=== PATIENT | male | born 2005 | race Caucasian/White ===

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

== ENCOUNTER 2025-08-30 17:02 | Emergency (ER) | payer OTHER, BC, SELFPAY ==
[2025-08-30 17:12] VITALS: BP 111/62; PULSE 59; RESP 16; TEMP 36.8; O2SAT 98; BMI 20.2
--- NOTE | 2025-08-30 17:31 | ED.HEATRA ---
HPI - Head Injury General Chief complaint: Head Injury/Pain Stated complaint: Hit head at work Time Seen by Provider: 08/30/25 17:16 History of Present Illness HPI Narrative: This patient is a 20-year-old male who comes in for evaluation of a head injury that occurred at work today. He stood up and hit his head on and implement and felt dazed but did not have loss of consciousness. Since then he is reporting some feelings of lightheadedness and off balance at times. He also reports some nausea a but has not had any vomiting. There is no altered level of consciousness or neurologic deficit since this injury. Related Data Home Medications ?Medication ?Instructions ?Recorded ?Confirmed No Known Home Medications 08/30/25 08/30/25 Allergies Allergy/AdvReac Type Severity Reaction Status Date / Time No Known Drug Allergies Allergy Verified 07/21/25 11:14 Review of Systems Status of ROS: Reports: 10 or more systems reviewed and unremarkable except as noted in History and below Narrative: Constitutional: No fevers, no weight gain or loss. Eyes: No discharge. No vision changes. HENT: No congestion, no sore throat, no ear pain. Cardiovascular: No chest pain, no palpitations. Respiratory: No shortness of breath, no wheezes, no cough. Gastrointestinal: No abdominal pain, no vomiting, no diarrhea. Genitourinary: No dysuria, no hematuria. Musculoskeletal: Normal range of motion. Skin: No rashes, no pruritis. Neurological: No dizziness, weakness, sensory change, speech change. Endo/Heme/Allergies: No bruising or bleeding. No polydipsia. Pysch: no suicidality, no anxiety, no insomnia. All other systems reviewed and are negative. PFSH [facility] Social History Smoking Status: Never smoker How often do you have a drink containing alcohol: never AUDIT-C Alcohol total score: 0 Non-prescribed substance use: denies use Exam Narrative: Exam Narrative: Constitutional: Well-developed, well-nourished, no acute distress. HEENT: Small area of erythema on the top of his head without any underlying swelling or hematoma. No abrasion or laceration. Neck: Normal range of motion. Nontender. Supple. Heart: Regular. No murmurs. Normal rate. Intact distal pulses. Lungs: Clear to auscultation. No chest discomfort. No wheezes, rhonchi, or rales. Abdomen: Normal bowel sounds. Nontender. No rebound tenderness. Genitalia: Deferred. Back: No midline tenderness. Normal range of motion. Extremities: Normal range of motion. No injury. Skin: Intact. No rash. Warm. No erythema or pallor. Neurologic: No altered sensation. No weakness. Alert and oriented. Psychiatric: No suicidality. No anxiety or depression. No insomnia. Nursing notes and vitals signs are reviewed. Const: Vital Signs, click to edit/add: Vital Signs - 24 hr 08/30/25 17:12 Temperature 98.3 F Pulse Rate [Pulse Oximeter] 59 L Respiratory Rate 16 Blood Pressure [Ri ght Upper Arm] 111/62 Pulse Oximetry 98 Oxygen Delivery Me thod Room Air Course Vital Signs Vital signs: Initial Vital Signs Temperature 98.3 F 08/30/25 17:12 Temperature Source Temporal Artery Scan 08/30/25 17:12 Pulse Rate 59 L 08/30/25 17:12 Respiratory Rate 16 08/30/25 17:12 Blood Pressure 111/62 08/30/25 17:12 Blood Pressure Mean 78 08/30/25 17:12 Blood Pressure Position Sitting 08/30/25 17:12 Pulse Oximetry 98 08/30/25 17:12 Oxygen Delivery Method Room Air 08/30/25 17:12 Vital Signs Temperature 98.3 F 08/30/25 17:12 Pulse Rate 59 L 08/30/25 17:12 Respiratory Rate 16 08/30/25 17:12 Blood Pressure 111/62 08/30/25 17:12 Pulse Oximetry 98 08/30/25 17:12 Oxygen Delivery Method Room Air 08/30/25 17:12 Temperature 98.3 F 08/30/25 17:12 Pulse Rate 59 L 08/30/25 17:12 Respiratory Rate 16 08/30/25 17:12 Blood Pressure 111/62 08/30/25 17:12 Pulse Oximetry 98 08/30/25 17:12 Oxygen Delivery Method Room Air 08/30/25 17:12 MDM - Head Injury MDM Narrative Medical decision making narrative: This patient comes in for evaluation of a head injury that occurred at work. He brings the a return to work form with him that he needs filled out. He hit the top of his head earlier today in his since then had some feelings of off balance and nausea symptoms. He does not report any other symptoms. I did review nexus rules for head injury and discuss the role of CT imaging but indicated this was not indicated at this time. The patient may have sustained a concussion as result of this injury and I did discuss with him guidelines for recovery from concussion. I did fill out a return to work form. The patient received [facility] prescriptions for Zofran and Toradol. Discharge Plan Discharge Clinical Impression: Closed head injury Patient Disposition: Home, Self-Care Condition: Stable Additional Instructions: Okay to return to work at next shift but avoid strenuous activity that is causing worsening symptoms. After 2 or 3 days increase activity as tolerated. Take medication as needed and directed. Return if worsening. Prescriptions: No Action No Known Home Medications Follow Up/Referrals: Provider,Not a Local [Primary Care Provider, Family Practice] Stand Alone Forms: [employer] Info Instructions
== END 2025-08-30 18:29 | disposition home or self-care (01) ==
PROVIDERS: Emergency Provider Emergency Medicine Emergency Medical Services
DX: S09.90XA Unspecified injury of head, initial encounter (principal); W22.09XA Striking against other stationary object, initial encounter; Y99.0 Civilian activity done for income or pay
CPT/HCPCS: 99283; 99284

== ENCOUNTER 2025-09-01 22:26 | Emergency (ER) | payer OTHER, BC, SELFPAY ==
[2025-09-01 22:42] VITALS: BP 146/91; PULSE 81; RESP 16; TEMP 36.6; O2SAT 98; BMI 20.9
--- NOTE | 2025-09-01 22:57 | ED.HA ---
HPI - Headache General Time Seen by Provider: 22:58 Date Seen: 09/01/25 Chief Complaint: Headache/Migraine Stated Complaint: concussion 08/30, feeling worse Time Seen by Provider: 09/01/25 22:57 Source: patient, RN notes reviewed and old records reviewed Mode of arrival: ambulatory Limitations: no limitations History of Present Illness HPI Narrative: This young man is a very pleasant 20-year-old previously healthy who has had a recent head injury comes to the ER with significant headache especially retro-orbital and across his forehead associated with nausea photophobia and changes in his vision. 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 At that time it did cause him to feel nauseated. He was evaluated here in the ER diagnosed with concussion and discharged home with Toradol. The following day he hit his head again against a heavy pieces of equipment and this time it was in his a septal area behind his right ear. He notes that he has had nausea and headache since the original injury and that today he now has significant headache. He also notes that has been a change in his vision in the left eye and he is describing squiggly 1 lines when he looks around. He has had headaches in the past but never migraines and never changes in his vision. In spite of all this he denies any neck pain numbness or tingling of the extremities. He has not had any fever or chills. He presents tonight with his significant other who is very loving and supportive. Related Data Home Medications ?Medication ?Instructions ?Recorded ?Confirmed No Known Home Medications 08/30/25 08/30/25 Allergies Allergy/AdvReac Type Severity Reaction Status Date / Time No Known Drug Allergies Allergy Verified 07/21/25 11:14 Review of Systems Status of ROS: Reports: 6 or more systems reviewed and unremarkable except as noted in History and below Const: Denies: fever or chills Eyes: Reports: change in vision and light sensitivity; Denies: blurry vision ENMT: Denies: neck pain or nasal congestion Cardio: Reports: lightheadedness; Denies: chest pain, palpitations or shortness of breath with exertion Resp: Denies: shortness of breath or cough GI: Reports: nausea; Denies: abdominal pain or vomiting Musculo: Denies: back pain, neck pain or extremity pain Neuro: Reports: headache; Denies: numbness in extremities or weakness in extremities [facility] Social History Smoking Status: Never smoker How often do you have a drink containing alcohol: never AUDIT-C Alcohol total score: 0 Non-prescribed substance use: denies use Exam Narrative: Exam Narrative: Alert and oriented. Very pleasant in no acute distress. He is sitting in room 3 and the lytes are dark. EOM is full and pupils are equal. Dilated to approximately 4.5 mm. They both react briskly to light indirect and direct. No significant painful response from patient. Eyebrow raise smile symmetrical. Neck is supple with no midline cervical tenderness. No guarded movement and he is able to move his neck without difficulty. Palpation of the scalp shows no obvious step-offs or significant edema. Heart with regular rate and rhythm. Murmur noted best heard with expiration. 2/6. Lungs are clear bilaterally. Abdomen soft nontender. Extremities with equal strength and dexterity. Const: Vital Signs, click to edit/add: Vital Signs - 24 hr 09/01/25 22:42 Temperature 98 F Pulse Rate [Pulse Oximeter] 81 Respiratory Rate 16 Blood Pressure [Ri ght Upper Arm] 146/91 H Pulse Oximetry 98 Oxygen Delivery Me thod Room Air Documenting provider has reviewed patient's vital signs: yes Eye: Direct Ophthalmoscopy: photophobia Course Course ED Course: At this time patient certainly has symptoms consistent with concussion. Given his worsening headache and now with visual changes I do suggest CT of the head without contrast to rule out underlying skull fracture or intracranial bleed. and he is in agreement. For his headache we will use Reglan 10 mg IV piggyback with Benadryl 50 mg IV push and 1 L of saline. Vital Signs Vital signs: Initial Vital Signs Temperature 98 F 09/01/25 22:42 Temperature Source Temporal Artery Scan 09/01/25 22:42 Pulse Rate 81 09/01/25 22:42 Respiratory Rate 16 09/01/25 22:42 Blood Pressure 146/91 H 09/01/25 22:42 Blood Pressure Mean 109 H 09/01/25 22:42 Blood Pressure Position Sitting 09/01/25 22:42 Pulse Oximetry 98 09/01/25 22:42 Oxygen Delivery Method Room Air 09/01/25 22:42 Vital Signs Temperature 98 F 09/01/25 22:42 Pulse Rate 81 09/01/25 22:42 Respiratory Rate 16 09/01/25 22:42 Blood Pressure 146/91 H 09/01/25 22:42 Pulse Oximetry 98 09/01/25 22:42 Oxygen Delivery Method Room Air 09/01/25 22:42 Temperature 98 F 09/01/25 22:42 Pulse Rate 81 09/01/25 22:42 Respiratory Rate 16 09/01/25 22:42 Blood Pressure 146/91 H 09/01/25 22:42 Pulse Oximetry 98 09/01/25 22:42 Oxygen Delivery Method Room Air 09/01/25 22:42 Medications Administered Medications: Discontinued Medications Generic Name Dose Route Start Last Admin Trade Name Freq PRN Reason Stop Dose Admin Diphenhydramine HCl 50 mg 09/01/25 23:06 09/01/25 23:35 Diphenhydramine 50 Mg/Ml Inj IVP 09/01/25 23:07 50 mg ONCE ONE Administration Metoclopramide HCl 10 mg/ 102 mls @ 306 mls/hr 09/01/25 23:06 09/01/25 23:35 Sodium Chloride IVPB 09/01/25 23:07 306 mls/hr ONCE ONE Administration Sodium Chloride 1,000 mls @ 1,000 mls/hr 09/01/25 23:06 09/01/25 23:34 0.9 % Sodium Chloride 1000 Ml IV 09/02/25 00:05 1,000 mls/hr .Q1H MORENO Administration Ketorolac Tromethamine 15 mg 09/02/25 00:07 09/02/25 00:12 Ketorolac 15 Mg/Ml Inj IVP 09/02/25 00:08 15 mg ONCE ONE Administration MDM - Headache MDM Narrative Medical decision making narrative: 1. Migraine-no evidence of intracranial bleed skull fracture or midline shift. Patient treated with migraine cocktail of Reglan 10 mg IV piggyback and Benadryl 50 mg IV push as well as 1 L of normal saline. Patient complained of continued headache. We then gave Toradol 15 mg IV in spite of the fact that p.o. doses had not been working for him. He and his significant other are both now sleeping. Nursing staff did wake him up and he has had complete resolution of his headache. We will allow them to continue to sleep here for a period of time. Patient will then be discharged home with suggestion for alternating Tylenol and ibuprofen every 4 hours. 2. Concussion-discussed head injury precautions. Patient will need to rest, increase fluids and sleep time. Follow-up with primary MD if not improving may be a candidate for mild TBI therapy. 3. Disposition-home at this time. Return for worsening symptoms and as needed. Medical Records Attestation: I reviewed the patient's medical records. Medical records narrative: Reviewed previous visit 08/30/[address] scan - head: Attestation: I have reviewed the pertinent imaging results. My impression: No obvious skull fracture intracranial bleed. Radiologist's impression: No acute intracranial hemorrhage. No CT evidence of acute territorial infarct. No hydrocephalus or midline shift. Cerebral parenchymal volume grossly within normal limits. Polypoid mucosal disease of the bilateral maxillary sinuses. Remainder of the visualized paranasal sinuses and mastoid air cells are well ventilated. No acute calvarial fracture. IMPRESSION: No acute intracranial abnormality. Discharge Plan Discharge Clinical Impression: Concussion Qualifiers: Encounter type: subsequent encounter Loss of consciousness presence/duration: without LOC Qualified Code(s): S06.0X0D - Concussion without loss of consciousness, subsequent encounter Patient Disposition: Home, Self-Care Condition: Improved Instructions: Concussion (ED) Additional Instructions: Recommend at least 7 days of rest. No work, no intense activity. Avoid loud noises, avoid TV and screen time especially video games or sports where there is rapid movement on the TV. Rest and nap when you are tired even during the day. Follow-up with your primary clinic/primary MD if you have ongoing symptoms. There is actually physical therapy that can be done now at specialty clinics for head injuries such as the 1 you have. Fortunately there was no evidence of skull fracture or bleeding on tonight studies. Stop Toradol for now. Alternate ibuprofen 600 mg and acetaminophen also known as Tylenol 1000 mg every 4 hours if needed. Return to the ER for worsening symptoms, persistent vomiting and as needed. Prescriptions: No Action No Known Home Medications Follow Up/Referrals: Provider,Not a Local [Primary Care Provider, Family Practice] Stand Alone Forms: [employer] Info Instructions
--- NOTE | 2025-09-01 23:06 | CRLHL7_ITS ---
For Patients: As a result of the Century Cures Act, medical imaging exams and procedure reports are released immediately into your electronic medical record. You may view this report before your referring provider. If you have questions, please contact your health care provider. INDICATION: Headache following concussion. TECHNIQUE: CT head without contrast. COMPARISON: None. FINDINGS: No acute intracranial hemorrhage. No CT evidence of acute territorial infarct. No hydrocephalus or midline shift. Cerebral parenchymal volume grossly within normal limits. Polypoid mucosal disease of the bilateral maxillary sinuses. Remainder of the visualized paranasal sinuses and mastoid air cells are well ventilated. No acute calvarial fracture. IMPRESSION: No acute intracranial abnormality. Please note that all CT scans at this facility use dose modulation, iterative reconstruction, and/or weight-based dosing when appropriate to reduce radiation dose to as low as reasonably achievable. Dictated by Alexander Subramanian MD @ 09/01/2025 11:55:16 PM (Electronically Signed)
[2025-09-01] MEDS: METOCLOPRAMIDE HCL 10 MG in 0.9 % SODIUM CHLORIDE 100 ml 100 ML 306 MG IVPB (23:35)
== END 2025-09-02 01:15 | disposition home or self-care (01) ==
PROVIDERS: Emergency Provider Family Medicine
DX: S06.0X0A Concussion without loss of consciousness, initial encounter (principal); W22.8XXA Striking against or struck by other objects, initial encounter; G43.909 Migraine, unspecified, not intractable, without status migrainosus
CPT/HCPCS: 70450; 96365; 96375; 99284; J1200; J1885; J2765; J7030